=== PATIENT | male | born 1980 | race Caucasian/White ===

== ENCOUNTER 2018-12-16 23:17 | Emergency (ER) | payer OTHER, SELFPAY ==
[2018-12-16 23:35] VITALS: BP 129/81; PULSE 68; RESP 18; TEMP 36.2; O2SAT 97; BMI 29.0
--- NOTE | 2018-12-17 00:17 | ED_ITS ---
HPI - Male Genitourinary General Chief complaint: Urogenital-Male Stated complaint: RT SIDE BACK PAIN TOWARDS FRONT HAD SURGERY MAR 9 Time Seen by Provider: 12/17/18 00:15 Source: patient Mode of arrival: ambulatory Limitations: no limitations History of Present Illness HPI Narrative: Patient is a 38-year-old male here for evaluation of right-sided flank pain. Patient states that earlier today he had the onset of pain. Has had urinary hesitancy, urgency, no fevers. Went to an outside hospital where after waiting in the waiting room when he was finally evaluated stated that the symptoms improved. Had a CBC, chemistry, and a bedside ultrasound which were all reported as unremarkable. Had a urinalysis that did show blood but no other signs of infection. I was able to review the note from this visit. Patient stated that he was given pain medications and told that he probably had a kidney stone was discharged home. After returning home he had return of the pain. He states that it was just is bad as it was before. He has had a recent left-sided inguinal hernia repair and was concerned that this could potentially be causing the problems. He did take his pain medication prior to arrival. Upon arrival patient was not nauseous. Had right-sided flank pain. He did have some urinary hesitancy is now having camacho blood in the urine. Related Data Allergies Allergy/AdvReac Type Severity Reaction Status Date / Time No Known Drug Allergies Allergy Verified 12/16/18 23:35 Review of Systems Constitutional Denies fever(s) Cardiovascular Denies chest pain and Denies dyspnea Respiratory Denies dyspnea Gastrointestinal Gastrointestinal: Denies abdominal pain and Denies nausea Genitourinary Reports hematuria, Reports urinary frequency, Reports urinary hesitancy and Reports urinary urgency Musculoskeletal Reports back pain (Right flank), Denies myalgias and Denies arthralgias Integumentary/Breasts Denies rash Neurologic Denies behavioral changes Psychiatric Denies behavioral changes Hematologic/Lymphatic Denies easy bleeding and Denies easy bruising FORMERLY [facility] Medical History Healthy adult (Acute) Social History Smoking Status: Never smoker Social History Smoking Status: Never smoker Exam Initial Vital Signs Initial Vital Signs: Vital Signs Temperature 97.2 F L 12/16/18 23:35 Pulse Rate 68 12/16/18 23:35 Respiratory Rate 18 12/16/18 23:35 Blood Pressure 129/81 12/16/18 23:35 Pulse Oximetry 97 12/16/18 23:35 Const General: cooperative, No comfortable (Uncomfortable) and well groomed Orientation: alert, awake and oriented x3 Resp Effort & Inspection: normal respiratory effort Cardio Rate: regular rate GI Inspection: non-distended Palpation: soft and No firm Back/Spine/Pelvis Back: CVA tenderness right Skin Other: Patient's left-sided inguinal hernia repair scar appears well. Neuro General: alert, awake and oriented x3 Extrem General: normal to inspection and capillary refill normal Course Orders Ordered: ED Orders 12/17/18 00:24 CT kidney ureter bladder (KUB) Stat Discontinued Medications Lidocaine HCl 6.1 ml/ Sodium (Chloride) 56.1 mls @ 336.6 mls/hr IV NOW ONE Stop: 12/17/18 00:24 Last Infusion: 12/17/18 01:17 Dose: 0 mls/hr Admin: 12/17/18 01:02 Dose: 336.6 mls/hr Ketorolac Tromethamine (Toradol) 30 mg IV NOW ONE Stop: 12/17/18 00:24 Last Admin: 12/17/18 00:39 Dose: 30 mg Vital Signs - 8 hr 12/16/18 23:35 Temperature 97.2 F L Pulse Rate 68 Respiratory Rate 18 Blood Pressure 129/81 Pulse Oximetry 97 MDM - Male Genitourinary Imaging Data CT scan - abdomen: Radiologist's impression: Small stone in the urinary bladder with right hydronephrosis, most likely recently passed from the right system. Tiny obstru cting renal stones also noted MDM Narrative Medical decision making narrative: No labs were drawn today. He had a urinalysis, CBC, chemistry all performed at the outside facility and I was able to review these. His creatinine was unremarkable. No signs of infection. A CT scan was performed to confirm the diagnosis of a kidney stone which it did. Patient was given Toradol and IV lidocaine reported a complete resolution of all of his symptoms. I had a discussion with him and his regarding the symptoms. We discussed return precautions. He has pain medications at home. We discussed follow-up instructions. He expressed understanding and agreement with plan. Discharge Plan Departure Patient Disposition: Home Clinical Impression: Renal colic on right side Instructions: Kidney Stones (Alternative Therapy), DI for Kidney Stones Activity Restrictions/Additional Instructions: Continue to stay hydrated. If you can catch the stone that is ideal. Take it to your medical department to have it evaluated in the laboratory. Take the pain medication as needed. Return to the emergency department for any new or worsening symptoms
--- NOTE | 2018-12-17 00:24 | DI.CT.S_ITS ---
PROCEDURE: CT KIDNEY URETER BLADDER (KUB) INDICATIONS: Right flank pain , concern for stone TECHNIQUE: Noncontrast 5 mm thick sections acquired from the diaphragms to the symphysis. 5 mm thick coronal and sagittal reformats were then performed. For radiation dose reduction, the following was used: automated exposure control, adjustment of mA and/or kV according to patient size. COMPARISON: None. FINDINGS: Image quality: Excellent. Lung bases: Lung bases are clear. Heart size is normal. Urinary system: Both kidneys are normal in size. A single punctate nonobstructing intrarenal calcification is present in the mid pole of the left kidney and 2 nonobstructing intrarenal calculi present in the right kidney. No hydronephrosis, however there is mild prominence of the right renal pelvis and proximal right ureter with mild periureteric inflammation. A 2 mm calcification sits dependently within the urinary bladder. No ureteral calculi. The urinary bladder is partially decompressed and the wall thickness is within normal limits for decompression. Other solid organs: Liver is normal in size. Gallbladder is normal. Pancreas is normal in contours. Spleen is normal in size. No adrenal nodules. Peritoneum and bowel: Unenhanced bowel loops demonstrate normal wall thickness and caliber. No free fluid or air. Nodes and vessels: No retroperitoneal or mesenteric adenopathy by size criteria. Aorta and inferior vena cava are normal in caliber. Abdominal wall: No ventral hernias. Pelvis: No free pelvic fluid. No inguinal hernias or adenopathy. Mild subcutaneous inflammation her left inguinal region, question recent surgery. Bones: No suspicious bony lesions. No vertebral body compression fractures. Moderate degenerative disc disease at L5-S1. IMPRESSION: 1. 2 mm calcification in the urinary bladder consistent with recently passed calculus. 2. Mild right proximal hydroureter anterior tear inflammation consistent with recently passed calculus. 3. Punctate, nonobstructing bilateral intrarenal calculi. Concordant with preliminary report. Dictated by: Martina Fabian M.D. on 12/17/2018 at 7:57 Approved by: Martina Fabian M.D. on 12/17/2018 at 8:04
[2018-12-17] MEDS: KETOROLAC 60 MG/2 ML VIAL 30 MG IV (00:39)
[2018-12-17] MEDS: LIDOCAINE 2% 6.1 ML in SODIUM CHLORIDE 0.9% 50 ML 336.6 ML IV (01:02)
--- NOTE | 2018-12-17 01:17 | PC.NURSE ---
s/p lidocaine infusion pt stated I dont feel anything
[2018-12-17 01:51] VITALS: BP 117/72; PULSE 55; RESP 19; O2SAT 97
== END 2018-12-17 01:50 | disposition home or self-care (01) ==
PROVIDERS: Emergency Provider Emergency Medicine
DX: N23 Unspecified renal colic (principal)
CPT/HCPCS: 74176; 96374; 96375; 99283; 99284; J1885